=== PATIENT | male | born 1945 | race Caucasian/White ===

== ENCOUNTER → 2023-08-25 | Outpatient (CLI) | payer OTHER ==
[2023-08-25 14:37] LABS: BASO % 0.5 % (0.0-1.0); EOS # 0.2 10^3/uL (0.0-0.5); EOS % 2.7 % (0.0-3.0); HEMATOCRIT 43.5 % (42.0-52.0); HEMOGLOBIN 14.6 g/dl (13.5-17.5); LYMPH # 1.2 10^3/uL (1.5-5.0); LYMPH % 20.4 % (24.0-44.0); MEAN CORPUSCULAR HEMOGLOBIN 32.9 pg (27.0-33.0); MEAN CORPUSCULAR HGB CONC 33.6 g/dl (32.0-36.5); MONO # 0.5 10^3/uL (0.0-0.8); MONO % 8.5 % (2.0-8.0); NEUTROPHILS # 4.1 10^3/uL (1.5-8.5); NEUTROPHILS % 67.7 % (36.0-66.0); PLATELET COUNT, AUTOMATED 202 10^3/uL (150-450); RED BLOOD COUNT 4.44 10^6/uL (4.30-6.10)
[2023-08-25 15:08] LABS: FERRITIN 25.9 NG/ML (10.5-307.3)
[2023-08-25 15:10] LABS: LDH LACTATE DEHYDROGENASE 237 U/L (120-246)
[2023-08-25 15:11] LABS: ALBUMIN 3.1 G/DL (3.2-5.2); ALKALINE PHOSPHATASE 90 U/L (46-116); ALT/SGPT 22 U/L (7.0-40); AST/SGOT 28 U/L (<34); BILIRUBIN,TOTAL 0.5 MG/DL (0.3-1.2); BLOOD UREA NITROGEN 17 MG/DL (9-23); CALCIUM LEVEL 9.1 MG/DL (8.3-10.6); CARBON DIOXIDE LEVEL 31 MMOL/L (20-31); CHLORIDE LEVEL 102 MMOL/L (98-107); CREATININE FOR GFR 1.06 MG/DL (0.70-1.30); GLOMERULAR FILTRATION RATE > 60.0 (>42); GLUCOSE, FASTING 106 MG/DL (74-106); IRON (FE) 114 UG/DL (65-175); PERCENT SATURATION 37.6 % (19.7-50.0); POTASSIUM SERUM 4.5 MMOL/L (3.5-5.1); SODIUM LEVEL 138 MMOL/L (136-145); TOTAL IRON BINDING CAPACITY 303 UG/DL (250-425); TOTAL PROTEIN 7.3 G/DL (5.7-8.2)
[2023-08-25 15:13] LABS: IMMUNOGLOBULIN G 1819 MG/DL (650-1600); VITAMIN B12 LEVEL 687 PG/ML (211-911)
[2023-08-25 16:11] LABS: IMMUNOGLOBULIN A > 540.0 MG/DL (40-350); RHEUMATOID FACTOR QUANT > 900.0 IU/ML (<14)
[2023-08-26 19:07] LABS: FREE KAPPA LIGHT CHAINS SERUM 45.3 mg/L (3.3-19.4); FREE LAMBDA LIGHT CHAINS SERUM 39.6 mg/L (5.7-26.3); IMMUNOTYPING SERUM IGA SO 724 mg/dL (61-437); IMMUNOTYPING SERUM IGM SO 124 mg/dL (15-143); KAPPA/LAMBDA RATIO SERUM 1.14 (0.26-1.65)
== END ==
LOC: M PLALAB 11:10
PROVIDERS: ATTEND Physician Assistant
DX: D89.2 Hypergammaglobulinemia, unspecified (principal); D50.9 Iron deficiency anemia, unspecified

== ENCOUNTER → 2024-11-02 | Outpatient (CLI) | payer MEDICARE | LOC: M RAD 09:59 | PROVIDERS: ATTEND Surgery | DX: K42.9 Umbilical hernia without obstruction or gangrene (principal) ==